=== PATIENT | female | born 1975 | race Caucasian/White ===

== ENCOUNTER 2016-11-01 07:28 | Day surgery (SDC) | payer OTHER ==
[2016-10-29 10:49] VITALS: BMI 29.9
[~2016-11-01 07:28] MED LIST: LACTATED RINGERS 1,000 ML IV SCH; LIDOCAINE 1% 20 ML VIAL (10MG/ML) FOR IV START INTRADERMA PRN
[2016-11-01 07:43] VITALS: RESP 16; TEMP 97.2
[2016-11-01] MEDS ORDERED: LIDOCAINE 1% INJ 10MG/ML (20 ML MDV) ONE (08:59)
[2016-11-01] MEDS ORDERED: PROPOFOL 10 MG/ML 20 ML VIAL IV ONE (08:59)
--- NOTE | 2016-11-01 09:22 | P.PCN ---
Date of Procedure: 11/01/16 Procedure(s) Performed: Procedure: Esophagogastroduodenoscopy and biopsy. Preoperative diagnosis: Chronic reflux symptoms, symptomatic despite therapy. Postoperative diagnosis: 1. Small sliding hiatal hernia with no obvious esophagitis or complicated reflux disease. 2. Mild gastritis and duodenitis. Preparation and sedation: Was provided by anesthesia. Brief clinical history: The patient is a 41-year-old female who is referred for this evaluation because of chronic reflux symptoms that has been symptomatic despite therapy. The patient has related having had reflux for the last 2-3 years and within the last 6 months she is having nocturnal reflux that wakes her up at night despite taking 40 mg omeprazole daily. No supra esophageal symptoms or any dysphagia or other alarm symptoms. Procedure: With the patient on her left lateral decubitus position and after informed consent and adequate sedation, I passed the Olympus-GIF 160 video upper endoscope through the cricopharyngeus down the esophagus. GE junction was irregular at around 40-41 cm from the incisors and there was a small, 1 cm hiatal hernia. The esophagus did not show any obvious erosions, ulcers, strictures or Garcia's esophagus. The endoscope was then passed into the stomach which was insufflated with air and inspected in detail including the retroflex view in the cardia. Finally, the endoscope was passed through the pylorus into the duodenum. There were no pyloric channel ulcers. Duodenal bulb , post bulbar area and descending duodenum showed minimal erythema. The antrum showed minimal mottling and erythema and there were no ulcers, erosions or bleeding. I obtained multiple biopsies from the duodenum, antrum and esophagus then the endoscope was withdrawn. The patient tolerated the procedure well. Plan: The patient was reassured. We discussed dietary and antireflux measures. She will continue with her current medical therapy and I suggested that she add an [id number] H2 lakesha at bedtime while we await the biopsy results. Further plans will be made accordingly. She will follow-up with you as planned.
[2016-11-01 09:47] VITALS: BP 117/82; PULSE 71
== END 2016-11-01 10:06 | disposition home or self-care (01) ==
LOC: ORWHC2ENDO 07:28
DX: K21.0 Gastro-esophageal reflux disease with esophagitis (principal); K29.50 Unspecified chronic gastritis without bleeding; K29.80 Duodenitis without bleeding; K44.9 Diaphragmatic hernia without obstruction or gangrene; Z79.899 Other long term (current) drug therapy
CPT/HCPCS: 88305; 88342; 43239; J2001; J2704

== ENCOUNTER → 2016-11-02 | Outpatient (CLI) | payer OTHER ==
--- NOTE | 2016-11-04 10:16 | MM ---
Reason for exam: screening (asymptomatic). Last mammogram was performed 1 year ago. Physical Findings: A clinical breast exam by your physician is recommended on an annual basis and results should be correlated with mammographic findings. MG Screening Mammo w CAD Bilateral CC and MLO view(s) were taken. Prior study comparison: October 30, 2015, bilateral MG screening mammo w CAD. The breast tissue is extremely dense which could obscure a lesion on mammography. No significant changes when compared with prior studies. ASSESSMENT: Benign, BI-RAD 2 RECOMMENDATION: Routine screening mammogram of both breasts in 1 year.
== END | disposition home or self-care (01) ==
LOC: RADMAMWWP 15:19
PROVIDERS: ATTEND Family Medicine
DX: Z12.31 Encounter for screening mammogram for malignant neoplasm of breast (principal)

== ENCOUNTER → 2018-07-10 | Outpatient (CLI) | payer OTHER ==
[2018-07-10 12:32] LABS: Basophils % (A) 0 %; Eosinophils # (A) 0.1 k/uL (0-0.7); Eosinophils % (A) 1 %; HCT 40.4 % (34.0-46.0); HGB 13.9 gm/dL (11.4-16.0); Lymphocytes % (A) 28 %; MCH 31.2 pg (25.0-35.0); MCHC 34.6 g/dL (31.0-37.0); MCV 90.3 fL (80.0-100.0); Mean Platelet Volume 7.8; Monocytes # (A) 0.3 k/uL (0-1.0); Monocytes % (A) 4 %; Neutrophils # (A) 4.8 k/uL (1.3-7.7); Neutrophils % (A) 66 %; Platelet Count 223 k/uL (150-450); RBC 4.47 m/uL (3.80-5.40); RDW 12.8 % (11.5-15.5); WBC 7.3 k/uL (3.8-10.6)
[2018-07-10 12:53] LABS: ALT 40 U/L (9-52); AST 29 U/L (14-36); Albumin 4.3 g/dL (3.5-5.0); Alkaline Phosphatase 74 U/L (38-126); Anion Gap 10 mmol/L; Blood Urea Nitrogen 14 mg/dL (7-17); Calcium 9.4 mg/dL (8.4-10.2); Carbon Dioxide 26 mmol/L (22-30); Chloride 103 mmol/L (98-107); Cholesterol 214 mg/dL (<200); Creatine Kinase 56 U/L (30-135); Glucose 102 mg/dL (74-99); HDL Cholesterol 41 mg/dL (40-60); LDL Cholesterol,Calculated 133 mg/dL (0-99); Potassium 4.1 mmol/L (3.5-5.1); Sodium 139 mmol/L (137-145); Total Bilirubin 0.5 mg/dL (0.2-1.3); Total Protein 7.4 g/dL (6.3-8.2); Triglycerides 199 mg/dL (<150)
[2018-07-10 13:06] LABS: T4, Free (Free Thyroxine) 0.99 ng/dL (0.78-2.19)
[2018-07-10 20:00] LABS: Hemoglobin A1C 5.2 % (4.0-6.0)
== END | disposition home or self-care (01) ==
LOC: LABWHC1 12:07
PROVIDERS: ATTEND Family Medicine
DX: Z00.00 Encounter for general adult medical examination without abnormal findings (principal); E78.5 Hyperlipidemia, unspecified; E03.9 Hypothyroidism, unspecified
CPT/HCPCS: 36415; 80053; 80061; 82550; 83036; 84439; 84443; 85025

== ENCOUNTER → 2018-07-11 | Outpatient (CLI) | payer OTHER ==
--- NOTE | 2018-07-12 11:49 | MM ---
Reason for exam: screening (asymptomatic). Last mammogram was performed 1 year and 8 months ago. History: Patient is postmenopausal. Physical Findings: A clinical breast exam by your physician is recommended on an annual basis and results should be correlated with mammographic findings. MG Screening Mammo w CAD Bilateral CC and MLO view(s) were taken. Prior study comparison: November 02, 2016, bilateral MG screening mammo w CAD. October 30, 2015, bilateral MG screening mammo w CAD. The breast tissue is heterogeneously dense. This may lower the sensitivity of mammography. There is no discrete abnormality. ASSESSMENT: Negative, BI-RAD 1 RECOMMENDATION: Routine screening mammogram of both breasts in 1 year.
== END | disposition home or self-care (01) ==
LOC: RADMAMWWP 08:13
PROVIDERS: ATTEND Family Medicine
DX: Z12.31 Encounter for screening mammogram for malignant neoplasm of breast (principal)
CPT/HCPCS: 77067

== ENCOUNTER 2018-07-29 18:10 | Emergency (ER) | payer OTHER ==
[2018-07-29] MEDS ORDERED: ceFAZolin IN SWFI 2 GM/20 ML SYRINGE IVP STA (18:43)
[2018-07-29] MEDS ORDERED: DIPH,PERTUS(ACELL)TETVAC-LF 0.5 ML VIAL IM ONE (18:43)
[2018-07-29] MEDS ORDERED: ONDANSETRON 4 MG/2 ML VIAL IVP STA (18:44)
[2018-07-29] MEDS ORDERED: MORPHINE SULFATE 4 MG/ML SYRINGE IVP STA (18:44)
--- NOTE | 2018-07-29 19:25 | XR ---
EXAMINATION TYPE: XR hand complete LT DATE OF EXAM: 07/29/2018 CLINICAL HISTORY: Left hip pain and lacerations. TECHNIQUE: Frontal, lateral and oblique images of the left hand are obtained. COMPARISON: None. FINDINGS: There is no acute fracture/dislocation evident in the left hand. The joint spaces in the l eft hand appear within normal limits. Focal soft tissue swelling is seen overlying the dorsal aspect of the metacarpals and the distal interphalangeal joints. Punctate foci of subcutaneous emphysema are noted in this region. No radiopaque foreign body.. Circumscribed accessory ossicle is seen near the triangular fibrocartilage. IMPRESSION: There is no acute fracture or dislocation in the left hand. Soft tissue swelling of the dorsum of the hand with subcutaneous emphysema and no radiopaque foreign body.
--- NOTE | 2018-07-29 19:30 | ED ---
General Adult HPI - General Chief complaint: Wound/Laceration Stated complaint: Left Hand Laceration Time Seen by Provider: 07/29/18 18:36 Source: patient, RN notes reviewed Mode of arrival: ambulatory Limitations: no limitations - History of Present Illness Initial comments: 43-year-old female presents to the emergency determine for a chief complaint of laceration to the left hand times one hour. Patient states she was holding a piece of wood for her when it moved and she was cut with a circular saw. Patient states most of her pain is in her left third digit. Patient states that she has very anxious at this time. She states she is feeling nauseous. She states her last tetanus shot was in 2005. Patient has no other complaints at this time including shortness of breath, chest pain, abdominal pain, nausea or vomiting, headache, or visual changes. - Related Data Home Medications Medication Instructions Recorded Confirmed Cholecalciferol [Vitamin D3] 2,000 unit PO DAILY 10/29/16 11/01/16 FLUoxetine HCL [PROzac] 40 mg PO DAILY 10/29/16 11/01/16 Levothyroxine Sodium [Synthroid] 75 mcg PO DAILY 10/29/16 11/01/16 Losartan-Hctz (Unknown Dose) 1 tab PO DAILY 10/29/16 11/01/16 Multivitamins, Thera [Multivitamin] 1 tab PO DAILY 10/29/16 11/01/16 Omeprazole 40 mg PO DAILY 10/29/16 11/01/16 Previous Rx's Medication Instructions Recorded Cephalexin [Keflex] 500 mg PO Q8H 10 Days cap 07/29/18 Allergies Allergy/AdvReac Type Severity Reaction Status Date / Time No Known Allergies Allergy Verified 07/29/18 18:17 Review of Systems ROS Statement: Those systems with pertinent positive or pertinent negative responses have been documented in the HPI. ROS Other: All systems not noted in ROS Statement are negative. Past Medical History Past Medical History: Hypertension, Thyroid Disorder History of Any Multi-Drug Resistant Organisms: None Reported Past Surgical History: Hysterectomy Past Psychological History: No Psychological Hx Reported Smoking Status: Never smoker Past Alcohol Use History: Occasional Past Drug Use History: None Reported General Exam Limitations: no limitations General appearance: anxious Head exam: Present: atraumatic, normocephalic, normal inspection Eye exam: Present: normal appearance, PERRL, EOMI. Absent: scleral icterus, conjunctival injection, periorbital swelling ENT exam: Present: normal exam, mucous membranes moist, normal external ear exam Neck exam: Present: normal inspection, full ROM. Absent: tenderness, meningismus, lymphadenopathy Respiratory exam: Present: normal lung sounds bilaterally. Absent: respiratory distress, wheezes, rales, rhonchi, stridor Cardiovascular Exam: Present: regular rate, normal rhythm, normal heart sounds. Absent: systolic murmur, diastolic murmur, rubs, gallop, clicks GI/Abdominal exam: Present: soft, normal bowel sounds. Absent: distended, tenderness, guarding, rebound, rigid Extremities exam: Present: tenderness (Tenderness over laceration site.), normal capillary refill (Capillary refill less than 2 seconds), other ( in all digits of the left hand. Radial pulse 2+ in the left upper extremity. laceration 5 cm through the second and fourth MCP joints. ). Absent: full ROM (Patient has intact flexion and extension of all 5 digits of the left hand. Patient refuses to make a fist because of pain.) Course Vital Signs 07/29/18 18:15 Temperature 98.4 F Pulse Rate 108 H Respiratory 20 Rate Blood Pressure 153/73 O2 Sat by Pulse 98 Oximetry Procedures - Procedures Initial comment: Neurovascular intact before splint application Indication: Laceration involving tendon of second MCP joint Type: Volar wrist Wounds: Laceration underneath Vance wrap Neurovascular status: patient has sensation and movement of digits extending outside the splint, there is no cyanosis, capillary refill < 2 seconds Follow-up: patient given number for orthopedics and instructed to phone to make an appointment. Patient aware she can return to the Emergency Department if any difficulties. - Laceration Laceration #1 Consent Obtained: verbal consent Indication: laceration Site: other (Dorsal left hand involving the second third and fourth MCP joints) Description: linear, stellate Depth: involves tendon Anesthetic Used: lidocaine 1% Anesthesia Technique: local infiltration Amount (mls): 7 Pre-repair: wound explored, irrigated extensively, deep structures intact Type of Sutures: other (Ethilon) Size of Sutures: 5-0 Number of Sutures: 15 Technique: simple, interrupted Patient Tolerated Procedure: well, no complications Additional Comments: Wound was irrigated using saline pressure irrigation. Wound was then irrigated using 1 L of sterile water. Medical Decision Making - Medical Decision Making 43-year-old presents with laceration to the left hand involving the third and fourth MCP joints. Patient does have intact range of motion and strength in all 5 digits. However there does appear to be tendon injury to the extensor tendon of left second digit. Strength intact on extension in the left second digit. Neurovascular intact in all digits. Capillary refill less than 2 seconds. Wound was irrigated extensively and inspected for foreign bodies. Wound was repaired with 15 sutures. Wrist was splinted in a volar wrist splint due to tendon injury. Patient will follow-up with orthopedics. X-ray was done which did not show any fractures or dislocations. Patient was given IV antibiotics and tetanus here. She will continue oral antibiotics at home. She is aware to monitor for any signs of infection. Disposition Clinical Impression: Laceration involving tendon Disposition: HOME SELF-CARE Condition: Good Instructions: Care For Your Stitches (ED), Laceration (ED) Additional Instructions: Please take antibiotic as directed. Please take Motrin and Tylenol for pain. Ice the area and keep it elevated. Follow-up with orthopedics on Tuesday morning. Return to have sutures removed in 7-10 days. Return immediately to the emergency department if you have any worsening symptoms or signs of infection. Prescriptions: Cephalexin [Keflex] 500 mg PO Q8H 10 Days cap Is patient prescribed a controlled substance at d/c from ED?: No Referrals: Juvencio Echevarria MD [Primary Care Provider] - 1-2 days Mau Dumont MD [Medical Doctor] - 1-2 days Time of Disposition: 20:54
[2018-07-29 21:00] VITALS: BP 140/71; PULSE 84; RESP 17; TEMP 98
== END 2018-07-29 21:19 | disposition home or self-care (01) ==
LOC: EC 18:10
DX: S66.922A Laceration of unspecified muscle, fascia and tendon at wrist and hand level, left hand, initial encounter (principal); I10 Essential (primary) hypertension; Z23 Encounter for immunization; Z79.899 Other long term (current) drug therapy; W31.2XXA Contact with powered woodworking and forming machines, initial encounter; Y92.009 Unspecified place in unspecified non-institutional (private) residence as the place of occurrence of the external cause
CPT/HCPCS: 99283; 12002; 96374; 96375 ×2; 90471; 36415; 87040; 73130; 90715; J2270; J2405; J0690

== ENCOUNTER → 2019-09-12 | Outpatient (CLI) | payer BC ==
[2019-09-12 16:03] LABS: African American GFR (CKD) 103.9 (60.0-200.0); Albumin 4.6 g/dL (3.80-4.90); Albumin/Globulin Ratio 2.19 (1.60-3.17); Anion Gap 9.4 mmol/L (4.00-12.00); BUN/Creat Ratio 12.5 Ratio (12.00-20.00); Calcium 9.2 mg/dL (8.7-10.3); Carbon Dioxide 26.6 mmol/L (21.6-31.8); Chol/HDL Ratio 4.85; Globulin 2.1 g/dL (1.6-3.3); Non-African American GFR(CKD) 89.7 (60.0-200.0); Potassium 4.1 mmol/L (3.5-5.5); Total Bilirubin 0.4 mg/dL (0.2-1.2); Total Protein 6.7 g/dL (6.2-8.2)
[2019-09-12 16:09] LABS: T4, Free (Free Thyroxine) 1.2 ng/dL (0.80-1.80)
== END ==
LOC: LABWHC1 10:16
PROVIDERS: ATTEND Family Medicine
DX: E78.5 Hyperlipidemia, unspecified (principal); E03.9 Hypothyroidism, unspecified
CPT/HCPCS: 36415; 80053; 80061; 82550; 84439; 84443

== ENCOUNTER → 2019-09-13 | Outpatient (CLI) | payer BC ==
--- NOTE | 2019-09-17 09:51 | MM ---
Reason for exam: screening (asymptomatic). Last mammogram was performed 1 year and 2 months ago. History: Patient is postmenopausal. Took hormonal contraceptives for 3 years. Physical Findings: A clinical breast exam by your physician is recommended on an annual basis and results should be correlated with mammographic findings. MG Screening Mammo w CAD Bilateral CC and MLO view(s) were taken. Prior study comparison: July 11, 2018, bilateral MG screening mammo w CAD. November 02, 2016, bilateral MG screening mammo w CAD. The breast tissue is heterogeneously dense. This may lower the sensitivity of mammography. No suspicious abnormality on the left. Right central upper middle depth new focal asymmetry. ASSESSMENT: Incomplete: need additional imaging evaluation, BI-RAD 0 RECOMMENDATION: Special view mammogram of the right breast. If lesion persists on supplemental views, image directed ultrasound is recommended. [facility] will attempt to contact patient to return for supplemental views and ultrasound if indicated.
== END | disposition home or self-care (01) ==
LOC: RADMAMWWP 13:51
PROVIDERS: ATTEND Family Medicine
DX: Z12.39 Encounter for other screening for malignant neoplasm of breast (principal)
CPT/HCPCS: 77067

== ENCOUNTER → 2019-10-04 | Outpatient (CLI) | payer BC ==
--- NOTE | 2019-10-05 10:54 | USB ---
Reason for exam: additional evaluation requested from abnormal screening. History: Patient is postmenopausal. Took hormonal contraceptives for 3 years. US Breast Workup Limited RT Right limited breast ultrasound including focal area of concern, retroareolar and axilla demonstrates no cystic or solid lesion seen. These results were verbally communicated with the patient and result sheet given to the patient on 10/04/19. ASSESSMENT: Probably benign, BI-RAD 3 RECOMMENDATION: Follow-up diagnostic mammogram of the right breast in 6 months.
--- NOTE | 2019-10-05 10:54 | MM ---
Reason for exam: additional evaluation requested from abnormal screening. Last mammogram was performed 1 month ago. History: Patient is postmenopausal. Took hormonal contraceptives for 3 years. Physical Findings: Nurse did not find any significant physical abnormalities on exam. MG Work Up Mamm w CAD RT Spot compression CC, spot compression MLO, and LM view(s) were taken of the right breast. Prior study comparison: September 13, 2019, bilateral MG screening mammo w CAD. July 11, 2018, bilateral MG screening mammo w CAD. There are scattered fibroglandular densities. Persistent nodular density 12 o'clock 5cm from nipple. Ultrasound is recommended. These results were verbally communicated with the patient and result sheet given to the patient on 10/04/19. ASSESSMENT: Incomplete: need additional imaging evaluation, BI-RAD 0 RECOMMENDATION: Ultrasound of the right breast.
== END | disposition home or self-care (01) ==
LOC: RADMAMWWP 14:29
PROVIDERS: ATTEND Family Medicine
DX: R92.8 Other abnormal and inconclusive findings on diagnostic imaging of breast (principal)
CPT/HCPCS: 77065